=== PATIENT | male | born 1960 | race Caucasian/White ===

== ENCOUNTER 2024-05-23 15:30 | Outpatient (CLI) | payer BC, SELFPAY | END 2024-05-23 15:31 | disposition home or self-care (01) | LOC: NFLDREF 05-24 11:13 | PROVIDERS: Visit Provider Physician Assistant Medical | DX: R03.0 Elevated blood-pressure reading, without diagnosis of hypertension (principal); R42 Dizziness and giddiness; D22.9 Melanocytic nevi, unspecified; K21.9 Gastro-esophageal reflux disease without esophagitis; K21.00 Gastro-esophageal reflux disease with esophagitis, without bleeding; Z12.5 Encounter for screening for malignant neoplasm of prostate; Z13.6 Encounter for screening for cardiovascular disorders; Z13.29 Encounter for screening for other suspected endocrine disorder | CPT/HCPCS: 80053; 80061; 84443; G0103 ==

== ENCOUNTER 2024-07-18 09:48 | Outpatient (CLI) | payer BC, SELFPAY | END 2024-07-18 09:49 | disposition home or self-care (01) | PROVIDERS: PCP Physician Assistant Medical; Visit Provider Physician Assistant Medical | DX: R42 Dizziness and giddiness (principal); R03.0 Elevated blood-pressure reading, without diagnosis of hypertension; Z13.29 Encounter for screening for other suspected endocrine disorder | CPT/HCPCS: 80053; 84443 ==

== ENCOUNTER 2024-07-23 10:37 | Emergency (ER) | payer BC, SELFPAY ==
[2024-07-23 11:11] VITALS: BP 169/72; PULSE 70; RESP 18; TEMP 36.8; O2SAT 98; BMI 21.3
[2024-07-23 12:11] VITALS: BP 135/66; BP 138/75; BP 139/70; PULSE 65; PULSE 66; O2SAT 97
--- NOTE | 2024-07-23 12:12 | CRLHL7_ITS ---
For Patients: As a result of the Century Cures Act, medical imaging exams and procedure reports are released immediately into your electronic medical record. You may view this report before your referring provider. If you have questions, please contact your health care provider. INDICATION: Fall with loss of consciousness and left scalp/eyebrow abrasion COMPARISON: None. TECHNIQUE: CT of the head without contrast. FINDINGS: Brain, ventricles, and extra-axial spaces: No acute intracranial hemorrhage. Johnson-white differentiation is grossly preserved. Size of the ventricles and sulci appears to be commensurate with age. There are intracranial vascular calcifications. Bones: No acute osseous findings. Visualized paranasal sinuses are clear. Visualized mastoid air cells are clear. IMPRESSION: No acute intracranial hemorrhage. Please note that all CT scans at this facility use dose modulation, iterative reconstruction, and/or weight-based dosing when appropriate to reduce radiation dose to as low as reasonably achievable. Dictated by Ag Win MD @ 07/23/2024 12:42:43 PM (Electronically Signed)
[2024-07-23 12:32] LABS: Appearance Urine Clear (Clear); Bilirubin Urine Negative (Negative); Blood Urine Negative (Negative); Color Urine Yellow (Yellow); Glucose Urine Negative (Negative); Ketones Urine Negative (Negative); Leukocyte Esterase Urine Negative (Negative); Nitrite Urine Negative (Negative); Protein Urine Negative (Negative); Urobilinogen Urine 0.2 (0.2-1.0)
[2024-07-23 12:44] LABS: Basophils Absolute Auto 0.02 K/uL (0.00-0.30); Basophils Percent Auto 0.2 % (0.0-3.0); Eosinophils Absolute Auto 0.12 K/uL (0.00-0.50); Eosinophils Percent Auto 1.3 % (0.0-7.0); Hematocrit 42.3 % (37.0-53.0); Hemoglobin* 13.8 gm/dL (13.5-17.5); Immature Granulocytes Abs Auto 0.02 K/uL (0.00-0.30); Immature Granulocytes Pct Auto 0.2 %; Lymphocytes Percent Auto 16.4 % (20-44); Mean Corpuscular HGB Conc 33 gm/dL (32-36); Mean Corpuscular Hemoglobin 33 pg (26-34); Mean Corpuscular Volume 102 fL (80-100); Monocytes Percent Auto 6.1 % (0.0-11.0); Neutrophils Percent Auto 75.8 % (42.0-72.0); Platelet Count* 213 K/uL (140-440); RDW Coefficient of Variation % 12.8 % (11.5-15.5); Red Blood Count 4.16 m/uL (4.30-5.90); White Blood Count* 9.52 K/uL (4.50-11.00)
[2024-07-23 12:45] LABS: RBC Urine 0-2 (0-2); Squamous Epithelial Cell Urine Few (None-Few); WBC Urine 0-2 (0-5)
--- NOTE | 2024-07-23 12:45 | ED_ITS ---
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 He had this episode [place] he was [place] the [employer], he was witnessed to be making some jerky motions when he went down on the floor. He has had 5 episodes in the last 2 and half weeks. They have all occurred when he was upright walking. He was hospitalized at [facility] last week. Workup there was uneventful, he had a normal echo, there is no obvious dysrhythmias, he is now currently wearing a Zio patch. He did hit his head on this occurrence, when he went down on the left side of his forehead, and also on the right side of his forehead, and has hit his head a numerous x2. Does not cu rrently have a headache, no double vision, all these episodes come on when he has some sort of warning, he says he smells almost a mucousy type smell, any gets tunnel vision. He also promptly comes back within seconds, although sometimes he feels somewhat tired for a while. He was told by [facility] that he has a bundle branch block of sorts. He does not have a follow-up appoint with cardiology. 2 and half years ago he had similar occurrence after COVID, where he had approximately 5 episodes of syncope also. Stress testing was done, and through primary care nothing was found, and this resolved. Is no other history of any significant issues, ears denies a feeling of dizziness headache neck pain or stiffness, bleeding, dark stools, chest pain with any of these occurrences, or feeling his heart racing or slowing down. He presents with his significant other. Denies a history of drugs or alcohol. MD complaint: loss of consciousness and collapsed Onset (ago): hour(s) -: second(s) Description of event: focal shaking Prodromal symptoms: vision changes Witnessed: Yes - by Bystander Context: standing up Injuries sustained associated with event: head Current symptoms: none and back to baseline History: previous syncopal episode Treatments prior to arrival: none Related Data Home Medications ?Medication ?Instructions ?Recorded ?Confirmed dimenhydrinate 50 mg tablet 50 mg PO Q4-6H PRN 05/23/24 05/23/24 (Dramamine) [id number] 300 mcg-K 60 1 tab PO Q24H 05/23/24 05/23/24 mcg-lycop 600 mcg-lutein 300 mcg tablet (Centrum Silver Men) omeprazole magnesium 20 mg 20 mg PO QDAY 05/23/24 05/23/24 capsule,delayed release (Acid Floral Associate (omeprazole)) Previous Rx's ?Medication ?Instructions ?Recorded omeprazole 20 mg capsule,delayed 20 mg PO QDAY #90 caps 05/23/24 release Allergies Allergy/AdvReac Type Severity Reaction Status Date / Time No Known Drug Allergies Allergy Verified 05/23/24 14:52 Review of Systems Status of ROS: Reports: 10 or more systems reviewed and unremarkable except as noted in History and below [facility] Medical History History of stress test ?Z92.89 - Personal history of other medical treatment (ICD-10) Exam Narrative: Exam Narrative: On examination in room 7 he is delightful he is in no apparent distress alert oriented x3 with a GCS of 15/15 nontoxic. His pupils are equal round reactive to light, couple beats of nystagmus laterally both ways. Tympanic membranes are normal, very small 2 mm laceration just above his left eyebrow, no swelling noted, slight bump along the right, no midfacial tenderness, cranial nerves 3-12 are normal oropharynx is normal with no tongue lacerations. His neck has good range of motion flexion extension lateral flexion and rotation with no tenderness to palpation his chest is good air entry bilateral with no wheezing crackles noted his heart sounds no clicks murmurs or gallops, Zio patch is noted his abdomen is soft there is no guarding no organomegaly bowel sounds are normal he moves all extremities independently well both upper and lower proximal distal muscle strength is normal. Right-hand dominant fingers nose testing is normal, and heel-neves testing is normal. Const: Vital Signs, click to edit/add: Vital Signs - 24 hr 07/23/24 11:11 07/23/24 12:11 07/23/24 12:11 Temperature 98.3 F Pulse Rate [Pulse Oximeter] 70 Pulse Rate [orthos tatic lying] 66 Pulse Rate [orthos tatic sitting] 65 Pulse Rate [orthos tatic standing] 66 Respiratory Rate 18 Blood Pressure [Ri ght Upper Arm] 169/72 H Blood Pressure [or thostatic lying] 138/75 Blood Pressure [or thostatic sitting] 135/66 Blood Pressure [or thostatic standing ] 139/70 Pulse Oximetry 98 97 Oxygen Delivery Me thod Room Air Documenting provider has reviewed patient's vital signs: yes Course Course ED Course: I was able to get his discharge information from [place], workup there was benign that did not show any abnormalities other than the initial troponin bump to 47. This then came down to normal, echocardiogram telemetry orthostatics all were negative there. They did put a Zio patch on him which she is currently wearing. His troponin x2 is been negative, telemetry has been negative, D-dimer was negative, he has been asymptomatic here his blood pressures have been reasonable. Electrolytes, hemoglobin, head CT also been normal. I think it would be reasonable at this point to take him off work, he has already had 5 episodes of syncope in the last 2 weeks. All related to standing up, cardiology follow-up and primary care follow-up with been made for him, he also on to discuss whether not he had high blood pressure, his readings here to not quantify high enough, he did have a stress test in the past that was negative here. But he may need further workup for this. I discussed with him in his signs and symptoms that should bring him back to the emergency department, and they were comfortable with this. Vital Signs Vital signs: Initial Vital Signs Temperature 98.3 F 07/23/24 11:11 Temperature Source Temporal Artery Scan 07/23/24 11:11 Pulse Rate 70 07/23/24 11:11 Respiratory Rate 18 07/23/24 11:11 Blood Pressure 169/72 H 07/23/24 11:11 Blood Pressure Mean 104 07/23/24 11:11 Pulse Oximetry 98 07/23/24 11:11 Oxygen Delivery Method Room Air 07/23/24 11:11 Vital Signs Temperature 98.3 F 07/23/24 11:11 Pulse Rate 70 07/23/24 11:11 Respiratory Rate 18 07/23/24 11:11 Blood Pressure 169/72 H 07/23/24 11:11 Pulse Oximetry 98 07/23/24 11:11 Oxygen Delivery Method Room Air 07/23/24 11:11 Temperature 98.3 F 07/23/24 11:11 Pulse Rate 66 07/23/24 12:11 Respiratory Rate 18 07/23/24 11:11 Blood Pressure 138/75 07/23/24 12:11 Pulse Oximetry 97 07/23/24 12:11 Oxygen Delivery Method Room Air 07/23/24 11:11 MDM - Syncope MDM Narrative Medical decision making narrative: Life-threatening differential diagnosis considered include: Cardiac arrhythmia, acute blood loss, and intracranial bleed. Other differential diagnosis include but are not limited to vasovagal syncope, orthostatic syncope, seizure, as well as other etiologies We will go ahead and get the records from [facility] to ensure that were not missing anything, he will need follow-up with Cardiology and possibly Neurology. Differential Diagnosis Differential diagnosis: Likely syncope due to orthostatic hypotension, vasovagal syncope, complete atrioventricular block, subarachnoid hemorrhage, pulmonary embolism and dehydration Medical Records Attestation: I reviewed the patient's medical records. Medical records narrative: I reviewed 29 pages from [facility] admission. Date of admission 07/15, date of discharge 07/16 Lab Data Attestation: I reviewed the patient's lab results. Labs: Lab Results 07/23/24 07/23/24 07/23/24 Range/Units 12:25 12:32 14:14 WBC 9.52 (4.50-11.00) K/uL RBC 4.16 L (4.30-5.90) m/uL Hgb 13.8 (13.5-17.5) gm/dL Hct 42.3 (37.0-53.0) % MCV 102 H (80-100) fL MCH 33 (26-34) pg MCHC 33 (32-36) gm/dL RDW Coeff of Irene 12.8 (11.5-15.5) % Plt Count 213 (140-440) K/uL Neut % (Auto) 75.8 H (42.0-72.0) % Lymph % (Auto) 16.4 L (20-44) % Zavala % (Auto) 6.1 (0.0-11.0) % Eos % (Auto) 1.3 (0.0-7.0) % Baso % (Auto) 0.2 (0.0-3.0) % Neut # (Auto) 7.20 H (1.7-7.0) K/uL Lymph # (Auto) 1.60 (0.90-2.90) K/uL Zavala # (Auto) 0.60 (0.00-0.90) K/UL Eos # (Auto) 0.12 (0.00-0.50) K/uL Baso # (Auto) 0.02 (0.00-0.30) K/uL Abs Immat Gran (auto) 0.02 (0.00-0.30) K/uL Imm/Tot Granulo (auto) 0.2 % INR 0.89 L (0.91-1.10) APTT 25 (23-33) Seconds D-Dimer Quant (PE/DVT) < 0.27 (0.00-0.50) ug/ml Sodium 138 (135-149) mmol/L Potassium 4.1 (3.6-5.1) mmol/L Chloride 102 (96-114) mmol/L Carbon Dioxide 27 (20-32) mmol/L Anion Gap 9 (7-15) mEq/L BUN 19 (7-30) mg/dL Creatinine 0.8 (0.5-1.5) mg/dL Estimated Creat Clear 66.15 Estimated GFR 98 ml/min Glucose 98 (60-115) mg/dL Calcium 9.9 (8.4-10.6) mg/dL NT-Pro-B Natriuret Pep 128 pg/mL TSH 1.570 (0.270-4.20) uIU/mL Urine Color Yellow (Yellow) Urine Appearance Clear (Clear) Urine pH 6.0 (5.0-8.5) Ur Specific [place] 1.010 (1.000-1.030) Urine Protein Negative (Negative) Urine Glucose (UA) Negative (Negative) Urine Ketones Negative (Negative) Urine Blood Negative (Negative) Urine Nitrite Negative (Negative) Urine Bilirubin Negative (Negative) Urine Urobilinogen 0.2 (0.2-1.0) Ur Leukocyte Esterase Negative (Negative) Urine RBC 0-2 (0-2) Urine WBC 0-2 (0-5) Ur Squamous Epith Cells Few (None-Few) Urine Bacteria None (None) Lab Acknowledgement Test Added POC Troponin I 0.01 (0.01-0.04) ng/ml 07/23/24 Range/Units 14:30 WBC (4.50-11.00) K/uL RBC (4.30-5.90) m/uL Hgb (13.5-17.5) gm/dL Hct (37.0-53.0) % MCV (80-100) fL MCH (26-34) pg MCHC (32-36) gm/dL RDW Coeff of Irene (11.5-15.5) % Plt Count (140-440) K/uL Neut % (Auto) (42.0-72.0) % Lymph % (Auto) (20-44) % Zavala % (Auto) (0.0-11.0) % Eos % (Auto) (0.0-7.0) % Baso % (Auto) (0.0-3.0) % Neut # (Auto) (1.7-7.0) K/uL Lymph # (Auto) (0.90-2.90) K/uL Zavala # (Auto) (0.00-0.90) K/UL Eos # (Auto) (0.00-0.50) K/uL Baso # (Auto) (0.00-0.30) K/uL Abs Immat Gran (auto) (0.00-0.30) K/uL Imm/Tot Granulo (auto) % INR (0.91-1.10) APTT (23-33) Seconds D-Dimer Quant (PE/DVT) (0.00-0.50) ug/ml Sodium (135-149) mmol/L Potassium (3.6-5.1) mmol/L Chloride (96-114) mmol/L Carbon Dioxide (20-32) mmol/L Anion Gap (7-15) mEq/L BUN (7-30) mg/dL Creatinine (0.5-1.5) mg/dL Estimated Creat Clear Estimated GFR ml/min Glucose (60-115) mg/dL Calcium (8.4-10.6) mg/dL NT-Pro-B Natriuret Pep pg/mL TSH (0.270-4.20) uIU/mL Urine Color (Yellow) Urine Appearance (Clear) Urine pH (5.0-8.5) Ur Specific [place] (1.000-1.030) Urine Protein (Negative) Urine Glucose (UA) (Negative) Urine Ketones (Negative) Urine Blood (Negative) Urine Nitrite (Negative) Urine Bilirubin (Negative) Urine Urobilinogen (0.2-1.0) Ur Leukocyte Esterase (Negative) Urine RBC (0-2) Urine WBC (0-5) Ur Squamous Epith Cells (None-Few) Urine Bacteria (None) Lab Acknowledgement POC Troponin I 0.01 (0.01-0.04) ng/ml ECG Data Attestation: I personally reviewed and interpreted this ECG as follows: ECG interpretation date: 07/23/24 Prior ECG tracings: available for review Interpretation: EKG shows bifascicular block, right bundle branch left anterior fascicular block normal sinus rhythm, ventricular rate 65, repeat EKG shows no acute changes. And when compared to old EKG there is no new changes. Discharge Plan Discharge Clinical Impression: Syncope and collapse, Right bundle branch block Patient Disposition: Home w/ Parent or Adult Condition: Stable Instructions: Syncope (DC), Tilt Table Test (DC) Additional Instructions: Follow up Cardiology appointment is scheduled on 08/22 with a 9:30am appointment time. Please arrive at 9:15am to complete paperwork. If you have any questions or need to reschedule, please call [phone]. Recheck with Jayme Baptiste made for at 12:30 at the [facility]. [facility] [address] [place] [address] Workup here was negative, for any significant issue I do suspect however that the Zio patch will be very helpful and I wonder about a possible dysrhythmia(that is causing these issues) I have made 2 follow-up appointments 1 with Cardiology and also 1 with your primary care physician I do think you should be out of work until you get this figured out, with this episodes of passing out. This may be due to long COVID like you brought up, Patient should be out of work August 01 until follow-up with primary care provider on July 31. Activity Detail: Out of work due to syncope Discharge Diet: Regular Prescriptions: No Action Centrum Silver Men [id number] mcg tablet 1 tab PO Q24H dimenhydrinate [Dramamine] 50 mg tablet 50 mg PO Q4-6H PRN omeprazole magnesium [Acid Floral Associate (omeprazole)] 20 mg capsule,delayed release(DR/EC) 20 mg PO QDAY omeprazole 20 mg capsule,delayed release(DR/EC) 20 mg PO QDAY Qty: 90 0RF Follow Up/Referrals: Jayme Baptiste PA-C [Primary Care Provider] - 07/31/24 (appointment set for Jul 31 at 12:30 with Jayme Baptiste in [place]) Stand Alone Forms: NuORDER Info Instructions
[2024-07-23 12:47] LABS: Slide Review Reflex No
[2024-07-23 12:57] LABS: Chloride* 102 mmol/L (96-114); Potassium* 4.1 mmol/L (3.6-5.1); Sodium* 138 mmol/L (135-149)
[2024-07-23 12:59] LABS: Creatinine* 0.8 mg/dL (0.5-1.5); Est. Creatinine Clearance* 66.15; Estimated Glomerular Filt Rate 98 ml/min; INR 0.89 (0.91-1.10); Partial Thromboplastin Time* 25 Seconds (23-33); Prothrombin Time 12.6 Seconds
[2024-07-23 13:00] LABS: Anion Gap 9 mEq/L (7-15); Blood Urea Nitrogen* 19 mg/dL (7-30); Calcium* 9.9 mg/dL (8.4-10.6); Carbon Dioxide* 27 mmol/L (20-32); Glucose* 98 mg/dL (60-115)
[2024-07-23 13:05] LABS: D Dimer Quantitative* < 0.27 ug/ml (0.00-0.50)
[2024-07-23 13:12] LABS: NT Pro B Type NatriureticPept* 128 pg/mL
[2024-07-23 14:08] LABS: Troponin, Point-of-Care* 0.01 ng/ml (0.01-0.04)
[2024-07-23 14:55] LABS: Troponin, Point-of-Care* 0.01 ng/ml (0.01-0.04)
== END 2024-07-23 15:40 | disposition home or self-care (01) ==
PROVIDERS: Emergency Provider Family Medicine; PCP Physician Assistant Medical
DX: I45.10 Unspecified right bundle-branch block (principal)
CPT/HCPCS: 36415; 70450; 80048; 81001; 83880; 84443; 84484; 85025; 85379; 85610; 85730; 93005; 94761; 99284; 99285

== ENCOUNTER 2024-10-16 08:38 | Outpatient (CLI) | payer BC, SELFPAY | END 2024-10-16 08:39 | disposition home or self-care (01) | PROVIDERS: PCP Physician Assistant Medical; Visit Provider Physician Assistant Medical | DX: R42 Dizziness and giddiness (principal) | CPT/HCPCS: 80053; 84443 ==

== ENCOUNTER 2025-01-10 07:30 | Outpatient (RCR) | payer BC, SELFPAY ==
--- NOTE | 2024-09-04 14:06 | PT.OPDN ---
PT [facility] Daily Note PT [facility] Outpatient Daily Note Start: 05/30/24 16:17 Freq: Status: Active Protocol: Document 09/04/24 12:27 BMS (Rec: 09/04/24 12:31 BMS [id number]) E-signed By Rosaura Ruano, PT PT OP Daily Progress Note Visit Information Note Type Daily Note,Re-Evaluation Visit Number 4 Insurance Information Recert Due Date 12/02/24 Insurance Name [employer] Medical Diagnosis Dizziness and giddiness R42 Treating Diagnosis L posterior positional vertigo H81.12 cervicalgia M54.2 Referring MD Jayme Baptiste PA-C Subjective Subjective had pacemaker put in at [facility] 08/09/24 after collapsed x 2, fell into wall x2, then crashed down in [employer], had patch on, have had vertigo since smashed up head and face lower chamber stops beating 5 seconds got pacemaker ' feel off' not spinny constant headaches nagging top of head, neck pain nagging through middle of neck to head and to shoulders. , shower massager helps when look to left not spinning laying down but alarm clock double not spinning stand up and walk feel off right away. sit and rest a minute or two. look down and up and real quick turns. 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 Date: 09/04/2024 Prepared by: Rosaura Ruano Exercises - Standing shoulder flexion wall slides - 1-3 x daily - 5 -7 x weekly - 1-3 sets - 10-20 reps - strength: 5-10 sec hold - stretches: hold 30-60 sec stretch - Standing Scapular Retraction - 1-3 x daily - 5-7 x weekly - 1-3 sets - 10-20 reps - strength: 5-10 sec hold - stretches: hold 30-60 sec stretch Objective Other/Pertinent Objective 22 min re -eval due to hx of syncope, injurious collapse with impact to face, head and neck - BP 157/74, HR 10-79 bpm, SpO2 98% - ROM cervical flex mild loss, ext mod loss, L rotation 48, R rotation =40 shoulder flex R=140, L = 138. abduct B 140, IR to L5 - MMT shoulder L flex, abduct and ER 4/5 R shoulder flex, abduct, ER, IR, bicep, tricep all 5/5 cervical 5/5 tested in neutral for flex, ext, B SB and B rotation PALPATION: increased myofascial restrictions through neck, UT, levator, B pec and into thoracic. trigger points noted in UT, levator and subocciput. tightness also noted through neck into subocciput and into occiput. Functional Test Performed & Score Dizziness Handicap Inventory Summary P1. Does looking up increase your problem? Looking up sometimes increases problem (2 points) E2. Because of your problem, do you feel frustrated? Always feel frustrated because of problem (4 points) F3. Because of your problem, do you restrict your travel for business or pleasure? Dizziness never restricts travel (0 points) P4. Does walking down the aisle of a supermarket increase your problem? Walking in the aisle of a supermarket sometimes increases problem (2 points) F5. Because of your problem, do you have difficulty getting into or out of bed? Always have difficulty getting into or out of bed due to problem (4 points) F6. Does your problem significantly restrict your participation in social activities? Dizziness never restricts participation in social activities (0 points) F7. Because of your problem, do you have difficulty reading ? Dizziness never causes difficulty reading (0 points) F8. Does performing more ambitious activities increase your problem? Performing more ambitious sometimes increases problem (2 points) E9. Are you afraid to leave your home without having someone accompany you? Because of problem, always afraid to leave your home without having someone accompany you (4 points) E10. Because of your problem, have you been embarrassed in front of others? Never embarrassed in front of others because of problem (0 points) P11. Do quick movements of your head increase your problem? Quick movements of head always increase problem (4 points) F12. Because of your problem, do you avoid heights? Always avoid heights because of problem (4 points) P13. Does turning over in bed increase your problem? Turning over in bed sometimes increases problem (2 points) F14. Is it difficult for you to do strenuous housework or yard work? It is sometimes difficult to do strenuous housework or yard work (2 points) E15. Are you afraid people may think that you are intoxicated? Never afraid people may think that you are intoxicated (0 points) F16. Because of your problem, is it difficult for you to go for a walk by yourself? It is never difficult to go for a walk by yourself (0 points) The tools listed on this website do not substitute for the informed opinion of a licensed physician or other health care provider. All scores should be re- checked. Please see our full Terms of Use. P17. Does walking down a sidewalk increase your problem ? Walking down a sidewalk sometimes increases problem (2 points) E18. Because of your problem, is it difficult for you to concentrate? It is never difficult to concentrate (0 points) F19. Is it difficult for you to walk around your house in the dark? It is sometimes difficult to walk around house in the dark (2 points) E20. Because of your problem, are you afraid to stay home alone? Never afraid to stay home alone (0 points) E21. Because of your problem, do you feel handicapped? Never feel handicapped (0 points) E22. Has your problem placed stress on your relationship with family/friends? Problem never places stress on relationships with family or friends (0 points) E23. Because of your problem, are you depressed? Never depressed because of problem (0 points) F24. Does your problem interfere with your job or household responsibilities? Problem never interferes with job or household responsibilities (0 points) P25. Does bending over increase your problem? Bending over sometimes increases problem (2 points) DHI Score: 36/100 Graphical DHI Score: Physical Score: Emotional Score: Functional Score: Patient Instructed in Risks/Benefits Yes Therapeutic Exercise Therapeutic Exercise Minutes (minutes) 8 Therapeutic Exercise: To Restore also in clinic manual static Functional Status hold TU and levator stretches, rotation stretches to allow improved ORM to allow positioning for tolerance of posterior canal testing and treatment Exercises - Standing shoulder flexion wall slides - 10 reps B or unilateral x 3, up to 5 sec holds - Standing Scapular Retraction 10 reps seated work on opening chest with breath and activate posterior MM Manual Therapy Techniques Manual Therapy Minutes (minutes) 6 Manual Therapy Techniques STM MFR to neck and upper back in supine to imrpove tissue extensibility for needed ROM in posterior canal testing. Neuromuscular Re-Ed Neuromuscular Reeducation Minutes ( 15 minutes) Neuromuscular Reeducation Comments lloyd hallpike Bx2, horizontal canal testing Bx2, anterior testing x 1 L bridget x 2 Treatment Minutes Untimed Code Treatment Minutes 22 Timed Code Treatment Minutes 29 Total Treatment Time 51 Billing Units Neuromuscular Reeducation Units 1 Therapeutic Exercise Units 1 Re-Evaluation Units 1 Assessment/Impression Assessment/Impression Orlin returns this date after series of collapse and injurious falls resulting in heart monitoring patch and sudden pacemaker placement on 08/09/24. He states that several of the falls resulted in contusions and bruising to orbits, nose, chin, adn face as well as others on head. States neck was tight before but is worse now and has constant neck pain and headache described as 'nagging ' primarily on top of head but also notes it wraps from neck up and over head. He also states that since these falls he has had recurrence of vertigo, presenting primarily now as feeling off and also with numbers on alarm clock moving around when he rolls onto left or sits up in bed. states the doorframe moves too but not a significant spinning sensation. Patient presents with testing + for L posterior canalithiasis. Did treat with L bridget x 2, will reassess next week after holiday. 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 After session today patient reports feeling much better and more steady, states neck is also improved in pain and mobility though this was not pre/post tested formally. Plan of Care Physical Therapy Goals MET 1) Pt demo I HEP and self care/home mgmt techniques for dizziness adaptation, safety measures, and home safety improvements including picking up throw rugs, night light or commode, and use of gait aid as appropriate. 09/04 not met has returned 2) Pt report dizziness limiting activities < 2 episodes in 1 week period. LTG meet 4-6 weeks has returned, not met 09/04 1) Pt demo ability to roll over in bed without vertigo. MET 2) Pt demo ability to pass balance testing (SLS, DGI, Fukuda etc) out of high fall risk. unmet has returned 09/04 3) Pt demo appropriate gait pattern with no evidence of lack of balance. Daily Plan of Care Continue per POC Daily Plan of Care Comments patient is approrpiate for skilled physical therapy to address symptoms of BPPV, imbalance, altered gait, and neck pain and restrictions that contribute to dizziness and loss of balance putting him at risk of falls Recertification Information Initial Certification Date 05/30/24 Recertification Start Date 09/04/24 Recertification Due Date 12/02/24 Reasons to Continue Skilled Therapy recurrence of vertigo s/p injurious falls and emergent pacemaker placement Rehabilitation Potential good Continued Plan of Care and Interventions MT for neck pain, ther ex to restore mobility in shoulders s/p pacemaker placement to reduce load through neck which is contributing to ongoing dizzy/off, neuro for habituation and canalith relocation as well as balance, and ther actvity/self care for improved management of diagnoses and symptoms Provider Signature Shows Agreement With POC & Medical Necessity Physician Comment/Change Comment or Changes Physician NPI Number #
== END 2025-05-10 23:59 | disposition home or self-care (01) ==
PROVIDERS: PCP Physician Assistant Medical; Visit Provider Physician Assistant Medical
DX: H81.12 Benign paroxysmal vertigo, left ear (principal); Z51.89 Encounter for other specified aftercare
CPT/HCPCS: 97110; 97112; 97140; 97161; 97164